=== PATIENT | female | born 1980 | race Caucasian/White ===

== ENCOUNTER 2019-04-27 20:39 | Emergency (ER) | payer OTHER ==
[2019-04-27 20:51] VITALS: BP 134/72
--- NOTE | 2019-04-27 20:57 | UC ---
Knee Pain HPI - HPI Summary HPI Summary: 38-year-old female presents with onset of right knee pain and swelling upon waking this morning. States pain has progressively worsened throughout the day. Describes as "sharp" in nature. Worsens with walking, weightbearing, and flexing the knee. Took ibuprofen 800 mg at approximately 5:30 this evening with no improvement in pain. Reports she has also been icing the knee. States she has had a previous injury to this knee that did require arthrocentesis in the past. No known injury. Denies fever, chills, erythema, ecchymosis, numbness, or tingling. - History of Current Complaint Chief Complaint: UCLowerExtremity Stated Complaint: RIGHT KNEE PAIN Time Seen by Provider: 04/27/19 20:48 Hx Obtained From: Patient Hx Last Menstrual Period: 04/16/19 Pain Intensity: 9 - Allergies/Home Medications Allergies/Adverse Reactions: Allergies Allergy/AdvReac Type Severity Reaction Status Date / Time azithromycin Allergy Rash Verified 04/27/19 20:51 cephalexin [From Keflex] Allergy Rash Verified 04/27/19 20:51 Home Medications: Home Medications Ibuprofen TAB* [Motrin TAB* 800 MG] 800 mg PO ONCE 04/27/19 [History Confirmed 04/27/19] PMH/Surg Hx/FS Hx/Imm Hx Previously Healthy: Yes - Denies significant PMH - Surgical History Surgical History: None - Family History Known Family History: Positive: Non-Contributory - Social History Occupation: Employed Full-time Lives: Alone Alcohol Use: Weekly Substance Use Type: None Smoking Status (MU): Heavy Every Day Tobacco Smoker Review of Systems All Other Systems Reviewed And Are Negative: Yes Constitutional: Negative: Fever, Chills Skin: Negative: Bruising Respiratory: Positive: Negative Cardiovascular: Positive: Negative Gastrointestinal: Positive: Negative Genitourinary: Positive: Negative Motor: Negative: Weakness Neurovascular: Negative: Decreased Sensation Musculoskeletal: Positive: Arthralgia - See HPI Neurological: Positive: Negative Is Patient Immunocompromised?: No Physical Exam - Summary Physical Exam Summary: GENERAL APPEARANCE: Well developed, well nourished, alert and cooperative, and appears to be in no acute distress. CARDIAC: Normal S1 and S2. No S3, S4 or murmurs. Rhythm is regular. There is no peripheral edema, cyanosis or pallor. Extremities are warm and well perfused. Capillary refill is less than 2 seconds. Peripheral pulses intact. LUNGS: Clear to auscultation without rales, rhonchi, wheezing or diminished breath sounds. ABDOMEN: Positive bowel sounds. Soft, nondistended, nontender. No guarding or rebound. No masses or hepatosplenomegally. MUSKULOSKELETAL: Normal muscular development. Limping gait. EXTREMITIES: Tenderness along the medial aspect of the right knee joint without erythema, ecchymosis, or edema. Full range of motion although painful especially with flexion the knee. Circulation and sensation intact. SKIN: Skin normal color, texture and turgor with no lesions or eruptions. Triage Information Reviewed: Yes Vital Signs: Initial Vital Signs Temp 97.9 F 04/27/19 20:48 Pulse 111 04/27/19 20:48 Resp 14 04/27/19 20:48 BP 134/72 04/27/19 20:48 Pulse Ox 100 04/27/19 20:48 Vital Signs Reviewed: Yes Diagnostics - Radiology No standard instances Radiology Interpretation Completed By: ED Physician - No acute osseous injury Knee Pain Course/Dx - Course Course Of Treatment: 38-year-old female presents with onset of right knee pain and swelling upon waking this morning. States pain has progressively worsened throughout the day. Describes as "sharp" in nature. Worsens with walking, weightbearing, and flexing the knee. Took ibuprofen 800 mg at approximately 5:30 this evening with no improvement in pain. Reports she has also been icing the knee. States she has had a previous injury to this knee that did require arthrocentesis in the past. No known injury. Denies fever, chills, erythema, ecchymosis, numbness, or tingling. Afebrile. Mildly hypertensive and tachycardic otherwise vital signs stable. At time of exam patient appeared uncomfortable holding her knee. She has tenderness along the medial aspect of the right knee joint without erythema, ecchymosis, or edema. Full range of motion although painful especially with flexion the knee. Circulation and sensation intact. Preliminary reading of the X-ray showed no acute osseous injury. Results reviewed with the patient. Recommending conservative treatment for right knee pain including NSAIDs and RICE. She was given a dose of hydrocodone acetaminophen 5 mg/325 mg 1 tablet in the clinic and given 1 tablet for home. I have sent a short-term prescription for the hydrocodoneacetaminophen for her to use for severe pain. The [facility]PA[facility] was consulted and safe to prescribe. Reference #: [id number]. She is to follow-up with orthopedic surgery in 5-7 days if symptoms do not improve. Anticipatory guidance and warning symptoms were reviewed with the patient. Verbalizes understanding and agrees with plan of care. - Differential Dx/Diagnosis Differential Diagnosis/HQI/PQRI: Bursitis, Gout, Infection, Sprain, Other - Arthritis Provider Diagnosis: Right medial knee pain Discharge ED - Sign-Out/Discharge Documenting (check all that apply): Patient Departure All imaging exams completed and their final reports reviewed: No - Discharge Plan Condition: Stable Disposition: HOME Prescriptions: Hydrocodone/Acetaminophen [Hydrocodone/Acetaminophen 5-325 mg] 1 tab PO Q8HR PRN #5 tab MDD 3 PRN Reason: Pain - Severe Patient Education Materials: Knee Pain (ED) Referrals: No Primary Care Phys,NOPCP [Primary Care Provider] - Monico Kapoor MD [Medical Doctor] - 5 Days (Call for appointment if no improvement in symptoms.) Additional Instructions: The x-ray performed in the clinic today showed no evidence of a fracture. The x -ray will be reviewed by the radiologist tomorrow and we will notify your left before meals anything that will change her plan of care. Rest the knee as much as possible. Apply ice to the affected area for 15-20 minutes at least 4 times a day to help with the pain and swelling. Elevate the leg to help reduce swelling. Take ibuprofen (Advil, Motrin) 600 mg every 8 hours with food for the next 5 days then may take as directed as needed for pain. Take hydrocodoneacetaminophen 5 mg/325 mg 1 tablet every 8 hours as needed for severe pain. This medication will cause drowsiness and to not take and drive or operate machinery. Follow up with orthopedic surgery in 5-7 days if symptoms do not improve. Seek immediate medical attention if you have severe pain not managed with pain medication, you are unable to walk or bear any weight, develop numbness or tingling in the leg, foot, or toes, or have any worsening of symptoms. - Billing Disposition and Condition Condition: STABLE Disposition: Home
[2019-04-27] MEDS ORDERED: HYDROcodone/ACETAMIN 5-325 MG* 1 TAB PO ONE (21:04)
--- NOTE | 2019-04-28 09:19 | UC ---
- Progress Note Progress Note: Negative fracture. No change in treatment plan. Area Loss Prevention Manager: Rob Salas C, ([id number]) Tanker Driver: CHRISTINA ( NUANCE) Report Date: 04/27/2019 21:03:00 Report Status: Final ====== Start of Report Content Patient Name: HOANG FORD Medical Record#: [id number] Ordering Physician: Malachi Hicks NP Acct.#: [id number] : 11/1980 Age: 38 Sex: F Location: [facility] Exam Date: 04/27/192102 ADM Status: [facility] Order Information: KNEE RIGHT 4+ VWS Accession Number: [id number] CPT: 90896 Indication: Medial and posterior RIGHT knee pain and soft tissue swelling. Comparison: None. Technique: RIGHT knee: AP, tunnel, lateral, sunrise views. Report: Negative for joint effusion, fracture, malalignment, or joint space narrowing. Unremarkable soft tissue contours. IMPRESSION: #. Negative exam. R0 Preliminary Imaging Read R0 <Electronically signed by Rob Salas MD in OV> 04/28/19824 Dictated By: Rob Salas MD Dictated Date/ Time: 04/28/19818 Transcribed Date/Time: 04/28/19818 Copy to: CC:Malachi Hicks NP; No Primary Care Phys,NOPCP ; Flash Hopkins MD Imaging - [facility] - [facility] [address] [place] [id number] ([phone]) ([phone]) ([phone]) ===== End of Report Content Course/Dx - Diagnoses Provider Diagnoses: Right medial knee pain Discharge ED - Sign-Out/Discharge Documenting (check all that apply): Post-Discharge Follow Up All imaging exams completed and their final reports reviewed: Yes - Discharge Plan Condition: Stable Disposition: HOME Prescriptions: Hydrocodone/Acetaminophen [Hydrocodone/Acetaminophen 5-325 mg] 1 tab PO Q8HR PRN #5 tab MDD 3 PRN Reason: Pain - Severe Patient Education Materials: Knee Pain (ED) Referrals: Monico Kapoor MD [Medical Doctor] - 5 Days (Call for appointment if no improvement in symptoms.) No Primary Care Phys,NOPCP [Primary Care Provider] - Additional Instructions: The x-ray performed in the clinic today showed no evidence of a fracture. The x -ray will be reviewed by the radiologist tomorrow and we will notify your left before meals anything that will change her plan of care. Rest the knee as much as possible. Apply ice to the affected area for 15-20 minutes at least 4 times a day to help with the pain and swelling. Elevate the leg to help reduce swelling. Take ibuprofen (Advil, Motrin) 600 mg every 8 hours with food for the next 5 days then may take as directed as needed for pain. Take hydrocodoneacetaminophen 5 mg/325 mg 1 tablet every 8 hours as needed for severe pain. This medication will cause drowsiness and to not take and drive or operate machinery. Follow up with orthopedic surgery in 5-7 days if symptoms do not improve. Seek immediate medical attention if you have severe pain not managed with pain medication, you are unable to walk or bear any weight, develop numbness or tingling in the leg, foot, or toes, or have any worsening of symptoms. - Billing Disposition and Condition Condition: STABLE Disposition: Home
== END 2019-04-27 21:33 | disposition home or self-care (01) ==
LOC: UCCORT 20:39
DX: M25.561 Pain in right knee (principal); F17.200 Nicotine dependence, unspecified, uncomplicated; Z88.1 Allergy status to other antibiotic agents
CPT/HCPCS: 99202; G0463